=== PATIENT | female | born 1955 | race Caucasian/White ===

== ENCOUNTER 2022-01-29 06:41 | Day surgery (SDC) | payer OTHER ==
[~2022-01-29 06:41] MED LIST: Lactated Ringers 1,000 ML IV SCH
[2022-01-29] MEDS ORDERED: Versed 2 MG/2 ML Injection ONE (07:52)
[2022-01-29] MEDS ORDERED: DIPRIVAN 200 MG/20 ML IV ONE ×2 (07:52→08:40)
[2022-01-29] MEDS ORDERED: Xylocaine-Mpf 2% 5 Ml Vial ONE (07:52)
[2022-01-29 09:05] VITALS: PULSE 88
[2022-01-29 09:34] VITALS: BP 150/98; O2SAT 92
--- NOTE | 2022-01-29 10:31 | OP ---
SURGERY DATE/TIME: 01/29/2022 0805 PREOPERATIVE DIAGNOSIS: Positive Cologuard. POSTOPERATIVE DIAGNOSIS: Colon polyps x4. PROCEDURE: Diagnostic colonoscopy. SURGEON: Remigio Woo M.D. ANESTHESIA: MAC by Eric Roman CRNA. ESTIMATED BLOOD LOSS: Minimal. SPECIMENS: 1) One hot snare polypectomy from the rectum. 2) One hot forceps polypectomy from the rectum. 3) Two hot forceps polypectomies from the sigmoid colon. DESCRIPTION OF PROCEDURE: After informed written consent was obtained, the patient was taken to the endoscopy suite. She was placed in left lateral decubitus position. Anesthesia was titrated to desired level of consciousness. Digital rectal exam showed normal sphincter tone and no internal lesions. The scope was inserted into the rectum and sequentially the entire colonic mucosa was traversed. The level of cecum was reached and verified with direct visualization of the ileocecal valve. Upon withdrawal there were two sessile polyps that were small in the sigmoid colon which were removed with hot forceps in their entirety with good hemostasis. There was a large pedunculated polyp in the proximal rectum which was snared and removed in two pieces. There was mild blood loss after the first snare and the second snare removed the remainder of the lesion with good hemostasis. Following removal, another small sessile polyp was encountered in that region was removed with hot forceps with complete removal of the lesion and good hemostasis as well. Prior to withdrawal retroflexion showed no internal lesions. The scope was removed. The patient was transferred to the recovery room in good condition. She had been advised to hold her aspirin and NSAID for the next week and to follow up in a week for pathology results.
== END 2022-01-29 09:30 | disposition home or self-care (01) ==
LOC: SDC 06:41
PROVIDERS: ATTEND Family Medicine
DX: K63.5 Polyp of colon (principal); R19.5 Other fecal abnormalities
CPT/HCPCS: J2250; J2704

== ENCOUNTER 2025-05-03 06:02 | Day surgery (SDC) | payer MEDICARE ==
[2025-05-03] MEDS: Lactated Ringers 1,000 ML IV SCH (06:08)
[2025-05-03] MEDS ORDERED: propofoL IV ONE ×2 (08:15→08:32)
[2025-05-03] MEDS ORDERED: Xylocaine-Mpf 2% 5 Ml Vial ONE (08:15)
[2025-05-03] MEDS ORDERED: Versed 2 MG/2 ML Injection ONE (08:20)
[2025-05-03] MEDS ORDERED: Ephedrine Sulfate 50 MG/ML ONE (08:45)
[2025-05-03] MEDS ORDERED: Lactated Ringers 1,000 ML IV ONE (08:46)
[2025-05-03 08:58] VITALS: RESP 16
[2025-05-03 09:07] VITALS: PULSE 79
[2025-05-03 09:11] VITALS: BP 116/68; TEMP 98; O2SAT 95
--- NOTE | 2025-05-04 10:03 | OP ---
SURGERY DATE/TIME: 05/03/2025 [id number] PREOPERATIVE DIAGNOSIS: History of colon polyps. POSTOPERATIVE DIAGNOSIS: Colon polyps x7. PROCEDURE: Colonoscopy. SURGEON: Remigio Woo MD ANESTHESIA: MAC by Mckay Duong CRNA. ESTIMATED BLOOD LOSS: Minimal. SPECIMENS: A hot forceps polypectomy from the transverse colon, and 1 cold forceps polypectomy from the sigmoid colon, and cold forceps polypectomy from the rectum x5. DESCRIPTION OF PROCEDURE AND FINDINGS: After informed written consent was obtained, the patient was taken to the endoscopy suite. She was placed in the left lateral decubitus position and anesthesia was titrated to desired level of consciousness. Digital rectal exam showed normal sphincter tone and no internal lesions. Scope was inserted into the rectum and sequentially the entire colonic mucosa was traversed. Level of cecum was reached and verified with direct visualization of the ileocecal valve. Upon withdrawal, careful mucosal inspection revealed no gross abnormalities until the transverse colon was reached. There was a sessile polyp in the transverse colon which was grasped with the forceps, cauterized, and removed in 2 separate pieces as it was broad based but shallow. Area was hemostatic, and the entire lesion appeared to be removed and/or destroyed. Upon further withdrawal, there was another smaller polyp in the distal sigmoid colon which was grasped with the forceps, removed coldly with minimal blood loss. This was sent for pathology. Upon further withdrawal, there were 5 small polyps in the rectal region which were all grasped with the forceps and removed cold with minimal blood loss and no complications. Prior to withdrawal, retroflexion showed no internal lesions. Scope was removed, and the patient was transferred to the recovery room in good condition.
== END 2025-05-03 09:15 | disposition home or self-care (01) ==
LOC: SDC 06:02
PROVIDERS: ATTEND Family Medicine
DX: Z09 Encounter for follow-up examination after completed treatment for conditions other than malignant neoplasm (principal); Z86.0100 Personal history of colon polyps, unspecified; D12.7 Benign neoplasm of rectosigmoid junction; D12.5 Benign neoplasm of sigmoid colon; D12.3 Benign neoplasm of transverse colon